=== PATIENT | male | born 2000 | race Caucasian/White ===

== ENCOUNTER 2022-02-02 15:04 | Emergency (ER) | payer OTHER ==
[~2022-02-02] VITALS: Ht 165.1 cm; Wt 59.9 kg
[2022-02-02] MEDS ORDERED: KETO10TA2 PO (19:00)
== END 2022-02-02 19:12 | disposition home or self-care (01) ==
LOC: ER 15:04
DX: S89.91XA Unspecified injury of right lower leg, initial encounter (principal); V89.0XXA Person injured in unspecified motor-vehicle accident, nontraffic, initial encounter; Y93.89 Activity, other specified; Y92.9 Unspecified place or not applicable; Y99.9 Unspecified external cause status; S29.9XXA Unspecified injury of thorax, initial encounter; Z88.8 Allergy status to other drugs, medicaments and biological substances